=== PATIENT | female | born 1985 | race Two or more races ===

== ENCOUNTER 2019-10-03 15:21 | Inpatient (IN) | payer OTHER ==
[~2019-10-03] VITALS: Ht 160 cm; Wt 4.1 kg
[2019-10-27] MEDS ORDERED: PRENATABS RX T1 EACH PO (12:19)
== END 2019-10-30 11:37 | disposition home or self-care (01) | DRG 788 ==
LOC: LDR 10-27 05:21 → SURG 10-27 12:00 → OB/GYN 10-27 12:00 → O/R 10-27 13:09 → OB/GYN 10-27 14:11
PROVIDERS: ADMIT Obstetrics & Gynecology Maternal & Fetal Medicine
PROC: 4A1HXFZ Monitoring of Products of Conception, Cardiac Rhythm, External Approach (ICD-10-PCS; 2019-10-27)
PROC: 3E033VJ Introduction of Other Hormone into Peripheral Vein, Percutaneous Approach (ICD-10-PCS; 2019-10-27)
PROC: 10D00Z1 Extraction of Products of Conception, Low, Open Approach (ICD-10-PCS; principal; 2019-10-27 12:00)
DX: O65.4 Obstructed labor due to fetopelvic disproportion, unspecified (principal); Z3A.40 40 weeks gestation of pregnancy; Z37.0 Single live birth

== ENCOUNTER 2019-10-16 10:19 | Outpatient (CLI) | payer OTHER | END 2019-10-16 11:49 | disposition home or self-care (01) | LOC: NST 10:19 | DX: Z34.83 Encounter for supervision of other normal pregnancy, third trimester (principal) ==

== ENCOUNTER 2019-10-23 10:21 | Outpatient (CLI) | payer OTHER | END 2019-10-23 11:06 | disposition home or self-care (01) | LOC: NST 10:21 | DX: Z34.83 Encounter for supervision of other normal pregnancy, third trimester (principal) ==

== ENCOUNTER 2024-02-14 15:44 | Outpatient (CLI) | payer OTHER ==
[~2024-02-14 15:44] MED LIST: PRENATABS RX T1 EACH PO
== END 2024-02-14 16:35 | disposition home or self-care (01) ==
LOC: NST 15:44
PROVIDERS: ATTEND Obstetrics & Gynecology Gynecology
DX: Z34.83 Encounter for supervision of other normal pregnancy, third trimester (principal)

== ENCOUNTER 2024-03-03 15:28 | Outpatient (CLI) | payer OTHER | END 2024-03-03 16:44 | disposition home or self-care (01) | LOC: NST 15:28 | PROVIDERS: ATTEND Obstetrics & Gynecology | DX: Z34.83 Encounter for supervision of other normal pregnancy, third trimester (principal) ==

== ENCOUNTER 2024-03-08 19:40 | Inpatient (IN) | payer OTHER ==
[~2024-03-08] VITALS: Ht 160 cm; Wt 103.9 kg
[2024-03-08] MEDS ORDERED: CEFAZOLIN SODIUM 1,000 MG VIAL IV SCH (19:45)
[2024-03-08] MEDS ORDERED: AMPICILLIN SODIUM 2,000 MG VIAL IV ONE (19:45)
[2024-03-08] MEDS ORDERED: AZITHROMYCIN 500 MG VIAL IV ONE (19:45)
[2024-03-08] MEDS ORDERED: RINGERS SOLUTION,LACTATED 1,000 ML IV SCH ×2 (19:45→22:00)
[2024-03-08] MEDS ORDERED: OXYTOCIN 10 UNITS/ML VIAL ONE (20:05)
[2024-03-08] MEDS ORDERED: ERYTHROMYCIN BASE 1 GM TUBE OP ONE (20:06)
[2024-03-08] MEDS ORDERED: DESMOPRESSIN ACETATE 4 MCG/ML AMPUL IV ONE (21:00)
[2024-03-08 21:09] LABS: PH,URINE 6.5 (5.0-8.0); URINE APPEARANCE Cloudy; URINE BILIRRUBIN Negative (NEGATIVE); URINE BLOOD Negative; URINE COLOR Yellow; URINE GLUCOSE Negative (NEGATIVE); URINE KETONE 15 (NEGATIVE); URINE LEUKOCYTE Moderate; URINE NITRATE Negative; URINE PROTEIN Trace (NEGATIVE); URINE UROBILINOGEN 0.2 E.U./dl
[2024-03-08 21:11] LABS: HEMATOCRIT 34.2 % (36.0-45.00); HEMOGLOBIN 11.5 g/dL (12.0-15.00); MEAN CELL VOLUME 75.9 fL (80.00-100.00); MEAN CORPUSCULAR HEMOGLOBIN 25.4 pg (27.00-32.0); MEAN CORPUSCULAR HGB CONC 33.5 g/dl (32.0-36.0); PLATELET COUNT 135 K/uL (150-450); RED CELL DISTRIBUTION WIDTH 18.5 % (11.5-14.5)
[2024-03-08 21:14] LABS: URINE EPITHELIAL CELLS 31.5 uL (0.0-38.8); URINE RBC 13.2 uL (0.0-20.8); URINE WBC 161.5 uL (0.0-23.2)
[2024-03-08 21:55] LABS: INR 0.97; PARTIAL THROMBOPLASTIN TIME 30.8 SECONDS (22.0-34.0); PROTHROMBIN TIME 10.2 SECONDS (9.0-11.5)
[2024-03-08 21:57] LABS: ALBUMIN 2.9 gm/dL (3.4-5.0); BILIRUBIN TOTAL 0.35 mg/dL (0.3-1.2); CALCIUM 9.4 mg/dL (8.5-10.1); CREATININE SERUM 0.55 mg/dL (0.55-1.02); GFR 124.37; GLOBULINA 3.7 G/DL (2.4-3.5); POTASSIUM 4.43 mEq/L (3.5-5.1); TOTAL PROTEIN 6.6 gm/dL (6.4-8.2)
[2024-03-08] MEDS ORDERED: MORPHINE SULFATE 4 MG/ML CARTRIDGE IV PRN (22:00)
[2024-03-08] MEDS ORDERED: OXYTOCIN 1,000 ML IV ONE (22:00)
[2024-03-08] MEDS ORDERED: hydrALAZINE HCL 20 MG VIAL ONE (22:41)
[2024-03-08 22:45] LABS: URINE YEAST NEGATIVE /hpf
[2024-03-08] MEDS ORDERED: MAGNESIUM SULFATE IN WATER 500 ML IV SCH (23:45)
[2024-03-09] MEDS ORDERED: ACETAMINOPHEN 500 MG GEL..CAP PO SCH
[2024-03-09] MEDS ORDERED: KETOROLAC TROMETHAMINE 30 MG VIAL IV SCH
[2024-03-09] MEDS ORDERED: SIMETHICONE 125 MG CAPSULE PO SCH (01:00)
[2024-03-09] MEDS ORDERED: GABAPENTIN 300 MG CAPSULE PO SCH (01:00)
[2024-03-09] MEDS ORDERED: ONDANSETRON HCL 2 MG/ML VIAL IV SCH (01:00)
[2024-03-09 07:52] LABS: HEMATOCRIT 31.2 % (36.0-45.00); HEMOGLOBIN 10.4 g/dL (12.0-15.00); MEAN CELL VOLUME 76.4 fL (80.00-100.00); MEAN CORPUSCULAR HEMOGLOBIN 25.5 pg (27.00-32.0); MEAN CORPUSCULAR HGB CONC 33.4 g/dl (32.0-36.0); RED BLOOD COUNT 4.08 M/uL (4.00-6.00); RED CELL DISTRIBUTION WIDTH 19.1 % (11.5-14.5)
[2024-03-09] MEDS ORDERED: KETOROLAC TROMETHAMINE 10 MG TABLET PO SCH ×2 (08:00→14:00)
[2024-03-09] MEDS ORDERED: OxyCODONE HCL 5 MG TABLET (ROXICODONE) PO PRN (08:00)
[2024-03-09 08:10] LABS: PLATELET COUNT 126 K/uL (150-450)
[2024-03-09] MEDS ORDERED: DOCUSATE SODIUM 100MG CAP PO SCH (09:00)
[2024-03-09] MEDS ORDERED: ENOXAPARIN SODIUM 40 MG/0.4 ML SYRINGE SUBCUTANEO SCH (09:00)
[2024-03-09] MEDS ORDERED: MAGNESIUM SULFATE IN WATER 0.04 GM/ML IV.SOLN IV SCH (13:30)
[2024-03-09] MEDS ORDERED: MAGNESIUM SULFATE IN WATER 500 ML IV SCH (14:00)
[2024-03-09] MEDS ORDERED: LABETALOL HCL 200 MG TABLET PO SCH (17:00)
[2024-03-10] MEDS ORDERED: MAGNESIUM SULFATE IN WATER 0.04 GM/ML IV.SOLN IV ONE (01:08)
== END 2024-03-11 12:31 | disposition home or self-care (01) | DRG 783 ==
LOC: OB/GYN 19:40 → LDR 19:40 → OB/GYN 23:32
PROVIDERS: Obstetrics & Gynecology; ADMIT Obstetrics & Gynecology; ATTEND Obstetrics & Gynecology
PROC: 0UB70ZZ Excision of Bilateral Fallopian Tubes, Open Approach (ICD-10-PCS; 2024-03-08)
PROC: 4A1HXCZ Monitoring of Products of Conception, Cardiac Rate, External Approach (ICD-10-PCS; 2024-03-08)
PROC: 10D00Z1 Extraction of Products of Conception, Low, Open Approach (ICD-10-PCS; principal; 2024-03-08 19:00)
DX: O34.211 Maternal care for low transverse scar from previous cesarean delivery (principal); U07.1 COVID-19; O98.52 Other viral diseases complicating childbirth; Z3A.38 38 weeks gestation of pregnancy; Z37.0 Single live birth; Z30.2 Encounter for sterilization